=== PATIENT | male | born 1965 | race Caucasian/White ===

== ENCOUNTER 2018-04-29 09:50 | Observation (INO) | payer OTHER, SELFPAY ==
[~2018-04-29] VITALS: Ht 177.8 cm; Wt 90.7 kg
[~2018-04-29 09:50] MED LIST: AMLO5 PO; ASPI325 PO; ATEN100 PO; ATOR80 PO; Antivert25 MG PO; CLON.1 PO; CLOP75 PO; CYAN500 PO; Calcium 250+D1 EACH PO; EZET10 PO; FERR325 PO; FISH1000 PO; HYDACE5 PO; HYDROCHLOROTHIAZIDE 25 MG; Hydrochloroth12.5 MG PO; IBUP800 PO; INSULANPEN SQ; ISOMON60ER PO; LANTUS; LISHYD2025 PO; LISI20 PO; LOSA50 PO; MELATONIN 5 MG1 EACH PO; METF500 PO; METFORMIN 1000 MG; METO100ER PO; METO25ER PO; Norco 5-325 Ta1 EACH PO; RANI150 PO; RANO500T PO; SIMV40 PO; VENL37.5ER PO; Valium5 MG PO; XARELTO20 MG PO; Zofran Odt4 MG SL
[2018-04-29 10:05] LABS: Calcium, Ionized (POC) 1.18 mmol/L (1.10-1.46); Chloride (POC) 102 mmol/L (98-108); Creatinine (POC) 1.6 mg/dL (0.8-1.3); Glucose (ISTAT POC) 190 mg/dL (70-99); Hemoglobin (POC) 13.6 g/dL (13.5-17.5); Sodium (POC) 140 mmol/L (135-148); Total CO2 (POC) 23 mmol/L (21-32)
[2018-04-29 10:14] LABS: BASOPHILS ABSOLUTE AUTO 0.05 K/mm3 (0.00-0.23); BASOPHILS PERCENT AUTO 1 % (0-2); EOSINOPHILS ABSOLUTE AUTO 0.23 K/mm3 (0.00-0.68); EOSINOPHILS PERCENT AUTO 3 % (0-6); Hematocrit 41.8 % (37.0-53.0); IMMATURE GRAN ABSOLUTE AUTO 0.02 K/mm3 (0.00-0.10); IMMATURE GRAN PERCENT AUTO 0 % (0-1); LYMPHOCYTES ABSOLUTE AUTO 2.38 K/mm3 (0.84-5.20); LYMPHOCYTES PERCENT AUTO 31 % (21-46); MONOCYTES PERCENT AUTO 10 % (4-13); Mean Corpuscular HGB 29.3 pg (26.0-34.0); Mean Corpuscular HGB Conc 33.5 g/dL (31.5-36.5); Mean Corpuscular Volume 87 fL (80-100); Mean Platelet Volume 9.4 fL (9.1-12.4); NEUTROPHILS ABSOLUTE AUTO 4.24 K/mm3 (1.96-9.15); NEUTROPHILS PERCENT AUTO 55 % (41-73); Platelet Count 260 K/mm3 (150-400); RDW Coefficient Variation 13.2 % (11.7-14.2); RDW Standard Deviation 42.6 fL (35.1-46.3); Red Blood Cell Count 4.78 M/mm3 (4.30-5.90); White Blood Cell Count 7.72 K/mm3 (4.00-11.30)
[2018-04-29] MEDS ORDERED: Vitamin C100 MG (10:21)
[2018-04-29] MEDS ORDERED: Vitamin A8000 UNIT PO (10:21)
[2018-04-29 10:34] LABS: Albumin/Globulin Ratio 1.2 (0.8-1.8); Bilirubin, Total 0.4 mg/dL (0.1-1.0); Bun/Creatinine Ratio 11.9 (12.0-20.0); Calcium, Blood 9.4 mg/dL (8.5-10.1); Creatinine, Blood 1.43 mg/dL (0.60-1.20); Globulin, Blood 3.4 g/dL (2.2-4.0); Potassium, Blood 4.1 mmol/L (3.5-5.5); Total Protein, Blood 7.4 g/dL (6.4-8.2)
[2018-04-30] MEDS ORDERED: LEVE500 PO (11:40)
== END 2018-04-30 11:57 | disposition home or self-care (01) ==
LOC: ER 09:50 → MEDS 09:51
PROVIDERS: Emergency Medicine
DX: R56.9 Unspecified convulsions (principal); R55 Syncope and collapse; I35.0 Nonrheumatic aortic (valve) stenosis; I25.10 Atherosclerotic heart disease of native coronary artery without angina pectoris; E11.9 Type 2 diabetes mellitus without complications; I10 Essential (primary) hypertension; E78.5 Hyperlipidemia, unspecified; G47.33 Obstructive sleep apnea (adult) (pediatric); Z99.89 Dependence on other enabling machines and devices; Z79.899 Other long term (current) drug therapy; Z95.1 Presence of aortocoronary bypass graft
CPT/HCPCS: 36415; 70450; 70553; 71045; 80047; 80053; 82550; 82947; 83690; 85014; 85025; 93005; 93010; 94762; 95819; 96365; 96376; 99285-25; A9577; G0378; J1953

== ENCOUNTER 2018-09-22 17:55 | Emergency (ER) | payer OTHER ==
[~2018-09-22] VITALS: Ht 177.8 cm; Wt 104.3 kg
[~2018-09-22 17:55] MED LIST changes: +LEVE500 PO; +Vitamin A8000 UNIT PO; +Vitamin C100 MG
[2018-09-22] MEDS ORDERED: METF500C PO (18:48)
[2018-09-22] MEDS ORDERED: EZET10 PO (18:48)
[2018-09-22] MEDS ORDERED: GLIP5ER PO (18:49)
[2018-09-22] MEDS ORDERED: Keflex500 MG PO (20:08)
== END 2018-09-22 20:13 | disposition home or self-care (01) ==
LOC: ER 17:55
DX: S61.217A Laceration without foreign body of left little finger without damage to nail, initial encounter (principal); W31.2XXA Contact with powered woodworking and forming machines, initial encounter; Z91.048 Other nonmedicinal substance allergy status; Z79.84 Long term (current) use of oral hypoglycemic drugs; Z79.899 Other long term (current) drug therapy; I10 Essential (primary) hypertension; E11.9 Type 2 diabetes mellitus without complications; K21.9 Gastro-esophageal reflux disease without esophagitis
CPT/HCPCS: 12042; 73140; 99283-25

== ENCOUNTER 2018-12-28 23:10 | Emergency (ER) | payer OTHER ==
[~2018-12-28] VITALS: Ht 177.8 cm; Wt 102.5 kg
[~2018-12-28 23:10] MED LIST changes: +GLIP5ER PO; +Keflex500 MG PO; +METF500C PO
[2018-12-28 23:52] LABS: BASOPHILS ABSOLUTE AUTO 0.06 K/mm3 (0.00-0.23); BASOPHILS PERCENT AUTO 1 % (0-2); EOSINOPHILS ABSOLUTE AUTO 0.24 K/mm3 (0.00-0.68); EOSINOPHILS PERCENT AUTO 3 % (0-6); Hematocrit 44.9 % (37.0-53.0); Hemoglobin 14.9 g/dL (13.5-17.5); IMMATURE GRAN ABSOLUTE AUTO 0.01 K/mm3 (0.00-0.10); IMMATURE GRAN PERCENT AUTO 0 % (0-1); LYMPHOCYTES ABSOLUTE AUTO 2.18 K/mm3 (0.84-5.20); LYMPHOCYTES PERCENT AUTO 31 % (21-46); MONOCYTES ABSOLUTE AUTO 0.81 K/mm3 (0.16-1.47); MONOCYTES PERCENT AUTO 12 % (4-13); Mean Corpuscular HGB 29.5 pg (26.0-34.0); Mean Corpuscular HGB Conc 33.2 g/dL (31.5-36.5); Mean Corpuscular Volume 89 fL (80-100); Mean Platelet Volume 9.5 fL (9.1-12.4); NEUTROPHILS ABSOLUTE AUTO 3.77 K/mm3 (1.96-9.15); NEUTROPHILS PERCENT AUTO 53 % (41-73); Platelet Count 317 K/mm3 (150-400); Red Blood Cell Count 5.05 M/mm3 (4.30-5.90); White Blood Cell Count 7.07 K/mm3 (4.00-11.30)
[2018-12-29 00:07] LABS: Alanine Aminotransfer (ALT/SGP 26 U/L (12-78); Albumin, Blood 4.3 g/dL (3.4-5.0); Albumin/Globulin Ratio 1.1 (0.8-1.8); Alk Phos 64 U/L (50-136); Anion Gap 7 mmol/L (6-16); Aspartate Aminotrans (AST/SGOT 12 U/L (12-37); Bilirubin, Total 0.4 mg/dL (0.1-1.0); Blood Urea Nitrogen 14 mg/dL (8-24); Bun/Creatinine Ratio 13.9 (12.0-20.0); CO2, Blood 29 mmol/L (21-32); Chloride, Blood 102 mmol/L (98-108); Creatinine, Blood 1.01 mg/dL (0.60-1.20); Globulin, Blood 3.8 g/dL (2.2-4.0); Glomerular Filtration Rate >60 (60-); Glucose, Blood 171 mg/dL (70-99); Potassium, Blood 3.8 mmol/L (3.5-5.5); Sodium, Blood 138 mmol/L (136-145); Total Protein, Blood 8.1 g/dL (6.4-8.2); Troponin I <0.015 ng/mL (0.000-0.040)
== END 2018-12-29 02:46 | disposition home or self-care (01) ==
LOC: ER 23:10
PROVIDERS: Emergency Medicine
DX: I48.0 Paroxysmal atrial fibrillation (principal); I10 Essential (primary) hypertension; E11.9 Type 2 diabetes mellitus without complications; Z88.8 Allergy status to other drugs, medicaments and biological substances; Z79.899 Other long term (current) drug therapy; Z79.84 Long term (current) use of oral hypoglycemic drugs
CPT/HCPCS: 36415; 71046; 80053; 83880; 84484; 85025; 92960; 93005; 93010; 96374-59; 96375-59; 99285-25; J2704; J7030

== ENCOUNTER 2019-07-02 06:05 | Day surgery (SDC) | payer OTHER ==
[~2019-07-02] VITALS: Ht 177.8 cm; Wt 102.0 kg
[~2019-07-02 06:05] MED LIST changes: +AMLO10 PO; +NITR.4SL SL
[2019-07-02] MEDS ORDERED: Isosorbide Mono30 MG PO (08:58)
--- NOTE | 2019-07-02 09:24 | NUR ---
PT AMBULATES WITH DOWN HALLWAY WITH STEADY GAIT FOR ECHOCARDIOGRAM. RIGHT RADIAL SITE REMAINS STABLE. TR BAND ON SOFT NON TENDER WITH NO BLEEDING. ARM BOARD ON FOR SUPPORT.
--- NOTE | 2019-07-02 09:31 | NUR ---
Pt to echo room ambulatory.
--- NOTE | 2019-07-02 10:00 | NUR ---
Pt returned from echo voided return to recliner. Discharge instructions given. Pt and verbilzed understanding.
--- NOTE | 2019-07-02 10:57 | NUR ---
Correction total iv fluid 500 ns given.
--- NOTE | 2019-07-02 11:01 | NUR ---
3 cc air removed from tr-band.
--- NOTE | 2019-07-02 11:10 | NUR ---
All air removed from tr-band. Pt dressing.
--- NOTE | 2019-07-02 11:15 | NUR ---
IV DC'D, CATH INTACT. DEFLATED TR BAND REMOVED, CLOTH DOT DRESSING PLACED WITH SPLINT AND SLING. PT AND SPOUSE VERBALIZED UNDERSTANDING OF DC INSTRUCTIONS AND FOLLOW UP INFO. DENIED ANY QESTIONS. OUT TO CAR VIA W/C.
== END 2019-07-02 12:13 | disposition home or self-care (01) ==
LOC: MHTC 06:05
DX: T82.218A Other mechanical complication of coronary artery bypass graft, initial encounter (principal); I25.10 Atherosclerotic heart disease of native coronary artery without angina pectoris; I35.0 Nonrheumatic aortic (valve) stenosis; I48.0 Paroxysmal atrial fibrillation; I10 Essential (primary) hypertension; E78.5 Hyperlipidemia, unspecified; Z79.899 Other long term (current) drug therapy
CPT/HCPCS: 93005; 93010; 93306; 93455; 99152; 99153; C1769; C1894; J1644; J2250; J3010; J7030; Q9967

== ENCOUNTER 2020-10-13 00:42 | Emergency (ER) | payer OTHER ==
[~2020-10-13] VITALS: Ht 177.8 cm; Wt 104.3 kg
[~2020-10-13 00:42] MED LIST changes: +Isosorbide Mono30 MG PO
[2020-10-13 02:09] LABS: BASOPHILS ABSOLUTE AUTO 0.06 K/mm3 (0.00-0.23); BASOPHILS PERCENT AUTO 1 % (0-2); EOSINOPHILS ABSOLUTE AUTO 0.15 K/mm3 (0.00-0.68); EOSINOPHILS PERCENT AUTO 1 % (0-6); Hematocrit 42.1 % (37.0-53.0); IMMATURE GRAN ABSOLUTE AUTO 0.05 K/mm3 (0.00-0.10); IMMATURE GRAN PERCENT AUTO 1 % (0-1); LYMPHOCYTES ABSOLUTE AUTO 1.47 K/mm3 (0.84-5.20); LYMPHOCYTES PERCENT AUTO 14 % (21-46); MONOCYTES PERCENT AUTO 7 % (4-13); Mean Corpuscular HGB 28.7 pg (26.0-34.0); Mean Corpuscular HGB Conc 33.3 g/dL (31.5-36.5); Mean Corpuscular Volume 86 fL (80-100); Mean Platelet Volume 9.7 fL (9.1-12.4); NEUTROPHILS ABSOLUTE AUTO 8.23 K/mm3 (1.96-9.15); NEUTROPHILS PERCENT AUTO 76 % (41-73); Platelet Count 282 K/mm3 (150-400); RDW Coefficient Variation 12.9 % (11.7-14.2); RDW Standard Deviation 40.4 fL (35.1-46.3); Red Blood Cell Count 4.87 M/mm3 (4.30-5.90); White Blood Cell Count 10.76 K/mm3 (4.00-11.30)
[2020-10-13 02:27] LABS: Alanine Aminotransfer (ALT/SGP 22 U/L (12-78); Albumin, Blood 3.9 g/dL (3.4-5.0); Albumin/Globulin Ratio 1.2 (0.8-1.8); Alk Phos 57 U/L (50-136); Anion Gap 13 mmol/L (6-16); Aspartate Aminotrans (AST/SGOT 12 U/L (12-37); Bilirubin, Total 0.4 mg/dL (0.1-1.0); Blood Urea Nitrogen 15 mg/dL (8-24); Bun/Creatinine Ratio 12.7 (12.0-20.0); CO2, Blood 27 mmol/L (21-32); Calcium, Blood 9.1 mg/dL (8.5-10.1); Chloride, Blood 99 mmol/L (98-108); Creatinine, Blood 1.18 mg/dL (0.60-1.20); Globulin, Blood 3.3 g/dL (2.2-4.0); Glomerular Filtration Rate >60 (60-); Glucose, Blood 168 mg/dL (70-99); Potassium, Blood 3.5 mmol/L (3.5-5.5); Sodium, Blood 139 mmol/L (136-145); Total Protein, Blood 7.2 g/dL (6.4-8.2)
== END 2020-10-13 03:27 | disposition home or self-care (01) ==
LOC: ER 00:42
PROVIDERS: Emergency Medicine
DX: R51.9 Headache, unspecified (principal); I10 Essential (primary) hypertension; E11.9 Type 2 diabetes mellitus without complications; Z79.84 Long term (current) use of oral hypoglycemic drugs; Z91.09 Other allergy status, other than to drugs and biological substances; Z95.5 Presence of coronary angioplasty implant and graft; Z95.1 Presence of aortocoronary bypass graft; Z79.01 Long term (current) use of anticoagulants; Z79.899 Other long term (current) drug therapy
CPT/HCPCS: 36415; 70450; 80053; 85025; 96374; 96375; 99285-25; J1100; J1200; J2405; J2765

== ENCOUNTER 2020-10-16 09:05 | Emergency (ER) | payer OTHER ==
[~2020-10-16] VITALS: Ht 177.8 cm; Wt 104.3 kg
[2020-10-16] MEDS ORDERED: Hydrochloroth12.5 MG PO (10:15)
[2020-10-16] MEDS ORDERED: DOXYLAMINE SUCCINATE UD (10:16)
[2020-10-16] MEDS ORDERED: VITAMIN D31000 UNI1 PO (10:16)
[2020-10-16] MEDS ORDERED: MELATONIN10 MG PO (10:17)
[2020-10-16 10:18] LABS: BASOPHILS ABSOLUTE AUTO 0.04 K/mm3 (0.00-0.23); BASOPHILS PERCENT AUTO 0 % (0-2); EOSINOPHILS ABSOLUTE AUTO 0.07 K/mm3 (0.00-0.68); EOSINOPHILS PERCENT AUTO 1 % (0-6); Hematocrit 44.7 % (37.0-53.0); Hemoglobin 15.7 g/dL (13.5-17.5); IMMATURE GRAN ABSOLUTE AUTO 0.02 K/mm3 (0.00-0.10); IMMATURE GRAN PERCENT AUTO 0 % (0-1); LYMPHOCYTES ABSOLUTE AUTO 1.34 K/mm3 (0.84-5.20); LYMPHOCYTES PERCENT AUTO 15 % (21-46); MONOCYTES ABSOLUTE AUTO 0.65 K/mm3 (0.16-1.47); MONOCYTES PERCENT AUTO 7 % (4-13); Mean Corpuscular HGB 29.6 pg (26.0-34.0); Mean Corpuscular HGB Conc 35.1 g/dL (31.5-36.5); Mean Corpuscular Volume 84 fL (80-100); Mean Platelet Volume 10.2 fL (9.1-12.4); NEUTROPHILS ABSOLUTE AUTO 7.02 K/mm3 (1.96-9.15); NEUTROPHILS PERCENT AUTO 77 % (41-73); Platelet Count 322 K/mm3 (150-400); RDW Coefficient Variation 12.8 % (11.7-14.2); RDW Standard Deviation 38.7 fL (35.1-46.3); Red Blood Cell Count 5.31 M/mm3 (4.30-5.90); White Blood Cell Count 9.14 K/mm3 (4.00-11.30)
[2020-10-16] MEDS ORDERED: BASAGLAR K100 UNIT/1 SC (10:18)
[2020-10-16 10:37] LABS: Alanine Aminotransfer (ALT/SGP 26 U/L (12-78); Albumin, Blood 4.3 g/dL (3.4-5.0); Albumin/Globulin Ratio 1.1 (0.8-1.8); Alk Phos 64 U/L (50-136); Anion Gap 13 mmol/L (6-16); Aspartate Aminotrans (AST/SGOT 17 U/L (12-37); Bilirubin, Total 0.8 mg/dL (0.1-1.0); Blood Urea Nitrogen 11 mg/dL (8-24); Bun/Creatinine Ratio 9.9 (12.0-20.0); CO2, Blood 26 mmol/L (21-32); Chloride, Blood 98 mmol/L (98-108); Creatinine, Blood 1.11 mg/dL (0.60-1.20); Globulin, Blood 3.8 g/dL (2.2-4.0); Glomerular Filtration Rate >60 (60-); Glucose, Blood 259 mg/dL (70-99); Potassium, Blood 3.4 mmol/L (3.5-5.5); Sodium, Blood 137 mmol/L (136-145); Total Protein, Blood 8.1 g/dL (6.4-8.2)
[2020-10-16] MEDS ORDERED: ONDA4 PO (11:48)
== END 2020-10-16 12:39 | disposition home or self-care (01) ==
LOC: ER 09:05
PROVIDERS: Physician Assistant
DX: G43.909 Migraine, unspecified, not intractable, without status migrainosus (principal); Z79.4 Long term (current) use of insulin; Z79.899 Other long term (current) drug therapy; Z91.09 Other allergy status, other than to drugs and biological substances
CPT/HCPCS: 36415; 80053; 85025; 96361; 96374; 96375; 99284-25; J0780; J1200; J7030

== ENCOUNTER 2020-11-15 12:04 | Emergency (ER) | payer OTHER ==
[~2020-11-15] VITALS: Ht 177.8 cm; Wt 104.3 kg
[~2020-11-15 12:04] MED LIST changes: +BASAGLAR K100 UNIT/1 SC; +DOXYLAMINE SUCCINATE UD; +MELATONIN10 MG PO; +ONDA4 PO; +VITAMIN D31000 UNI1 PO
[2020-11-15 13:16] LABS: BASOPHILS ABSOLUTE AUTO 0.07 K/mm3 (0.00-0.23); BASOPHILS PERCENT AUTO 1 % (0-2); EOSINOPHILS ABSOLUTE AUTO 0.24 K/mm3 (0.00-0.68); EOSINOPHILS PERCENT AUTO 3 % (0-6); Hematocrit 43.1 % (37.0-53.0); Hemoglobin 14.4 g/dL (13.5-17.5); IMMATURE GRAN ABSOLUTE AUTO 0.03 K/mm3 (0.00-0.10); IMMATURE GRAN PERCENT AUTO 0 % (0-1); LYMPHOCYTES ABSOLUTE AUTO 1.58 K/mm3 (0.84-5.20); LYMPHOCYTES PERCENT AUTO 22 % (21-46); MONOCYTES ABSOLUTE AUTO 0.67 K/mm3 (0.16-1.47); MONOCYTES PERCENT AUTO 10 % (4-13); Mean Corpuscular HGB Conc 33.4 g/dL (31.5-36.5); Mean Corpuscular Volume 87 fL (80-100); Mean Platelet Volume 9.7 fL (9.1-12.4); NEUTROPHILS ABSOLUTE AUTO 4.48 K/mm3 (1.96-9.15); NEUTROPHILS PERCENT AUTO 63 % (41-73); Platelet Count 307 K/mm3 (150-400); RDW Coefficient Variation 13.6 % (11.7-14.2); RDW Standard Deviation 42.8 fL (35.1-46.3); Red Blood Cell Count 4.97 M/mm3 (4.30-5.90); White Blood Cell Count 7.07 K/mm3 (4.00-11.30)
[2020-11-15 13:20] LABS: Alanine Aminotransfer (ALT/SGP 28 U/L (12-78); Albumin, Blood 4.1 g/dL (3.4-5.0); Albumin/Globulin Ratio 1.2 (0.8-1.8); Alk Phos 51 U/L (50-136); Anion Gap 9 mmol/L (6-16); Aspartate Aminotrans (AST/SGOT 12 U/L (12-37); Bilirubin, Total 0.3 mg/dL (0.1-1.0); Blood Urea Nitrogen 13 mg/dL (8-24); Bun/Creatinine Ratio 10.7 (12.0-20.0); CO2, Blood 30 mmol/L (21-32); Chloride, Blood 100 mmol/L (98-108); Creatinine, Blood 1.21 mg/dL (0.60-1.20); Globulin, Blood 3.3 g/dL (2.2-4.0); Glomerular Filtration Rate >60 (60-); Glucose, Blood 135 mg/dL (70-99); Potassium, Blood 4.3 mmol/L (3.5-5.5); Sodium, Blood 139 mmol/L (136-145); Total Protein, Blood 7.4 g/dL (6.4-8.2); Troponin I <0.015 ng/mL (0.000-0.040)
[2020-11-15] MEDS ORDERED: CIPHYDOTSU (14:18)
== END 2020-11-15 14:50 | disposition home or self-care (01) ==
LOC: ER 12:04
PROVIDERS: Emergency Medicine
DX: R06.00 Dyspnea, unspecified (principal); R94.31 Abnormal electrocardiogram [ECG] [EKG]; I10 Essential (primary) hypertension; E11.9 Type 2 diabetes mellitus without complications; Z79.4 Long term (current) use of insulin; Z79.899 Other long term (current) drug therapy; Z91.09 Other allergy status, other than to drugs and biological substances; Z95.5 Presence of coronary angioplasty implant and graft
CPT/HCPCS: 71046; 80053; 83690; 83880; 84484; 85025; 93005; 93010; 99285-25

== ENCOUNTER 2021-01-23 13:58 | Emergency (ER) | payer OTHER ==
[~2021-01-23] VITALS: Ht 205.7 cm; Wt 107.3 kg
[~2021-01-23 13:58] MED LIST changes: +CIPHYDOTSU
[2021-01-23 14:31] LABS: BASOPHILS ABSOLUTE AUTO 0.05 K/mm3 (0.00-0.23); BASOPHILS PERCENT AUTO 1 % (0-2); EOSINOPHILS ABSOLUTE AUTO 0.13 K/mm3 (0.00-0.68); EOSINOPHILS PERCENT AUTO 2 % (0-6); Hematocrit 41.3 % (37.0-53.0); Hemoglobin 14.2 g/dL (13.5-17.5); IMMATURE GRAN ABSOLUTE AUTO 0.02 K/mm3 (0.00-0.10); IMMATURE GRAN PERCENT AUTO 0 % (0-1); LYMPHOCYTES ABSOLUTE AUTO 1.17 K/mm3 (0.84-5.20); LYMPHOCYTES PERCENT AUTO 17 % (21-46); MONOCYTES ABSOLUTE AUTO 0.62 K/mm3 (0.16-1.47); MONOCYTES PERCENT AUTO 9 % (4-13); Mean Corpuscular HGB 29.5 pg (26.0-34.0); Mean Corpuscular HGB Conc 34.4 g/dL (31.5-36.5); Mean Corpuscular Volume 86 fL (80-100); Mean Platelet Volume 9.5 fL (9.1-12.4); NEUTROPHILS ABSOLUTE AUTO 4.98 K/mm3 (1.96-9.15); NEUTROPHILS PERCENT AUTO 71 % (41-73); Platelet Count 273 K/mm3 (150-400); RDW Coefficient Variation 13.3 % (11.7-14.2); Red Blood Cell Count 4.82 M/mm3 (4.30-5.90); White Blood Cell Count 6.97 K/mm3 (4.00-11.30)
[2021-01-23 14:45] LABS: Alanine Aminotransfer (ALT/SGP 21 U/L (12-78); Albumin/Globulin Ratio 1.1 (0.8-1.8); Alk Phos 52 U/L (50-136); Anion Gap 7 mmol/L (6-16); Aspartate Aminotrans (AST/SGOT 13 U/L (12-37); Bilirubin, Total 0.5 mg/dL (0.1-1.0); Blood Urea Nitrogen 14 mg/dL (8-24); Bun/Creatinine Ratio 12.3 (12.0-20.0); CO2, Blood 28 mmol/L (21-32); Calcium, Blood 9.9 mg/dL (8.5-10.1); Chloride, Blood 103 mmol/L (98-108); Creatinine, Blood 1.14 mg/dL (0.60-1.20); Globulin, Blood 3.5 g/dL (2.2-4.0); Glomerular Filtration Rate >60 (60-); Glucose, Blood 103 mg/dL (70-99); Sodium, Blood 138 mmol/L (136-145); Total Protein, Blood 7.5 g/dL (6.4-8.2)
== END 2021-01-23 15:50 | disposition home or self-care (01) ==
LOC: ER 13:58
PROVIDERS: Emergency Medicine
DX: G43.809 Other migraine, not intractable, without status migrainosus (principal); I10 Essential (primary) hypertension; E11.9 Type 2 diabetes mellitus without complications; E78.5 Hyperlipidemia, unspecified; I25.810 Atherosclerosis of coronary artery bypass graft(s) without angina pectoris; Z95.1 Presence of aortocoronary bypass graft; Z95.5 Presence of coronary angioplasty implant and graft; Z91.09 Other allergy status, other than to drugs and biological substances; Z79.899 Other long term (current) drug therapy; Z79.4 Long term (current) use of insulin
CPT/HCPCS: 70450; 80053; 85025; 93005; 93010; 99285-25

== ENCOUNTER 2021-01-30 15:56 | Emergency (ER) | payer OTHER ==
[~2021-01-30] VITALS: Ht 177.8 cm; Wt 108.9 kg
[2021-01-30 16:48] LABS: BASOPHILS ABSOLUTE AUTO 0.06 K/mm3 (0.00-0.23); BASOPHILS PERCENT AUTO 1 % (0-2); EOSINOPHILS ABSOLUTE AUTO 0.15 K/mm3 (0.00-0.68); EOSINOPHILS PERCENT AUTO 2 % (0-6); Hemoglobin 14.6 g/dL (13.5-17.5); IMMATURE GRAN ABSOLUTE AUTO 0.01 K/mm3 (0.00-0.10); IMMATURE GRAN PERCENT AUTO 0 % (0-1); LYMPHOCYTES ABSOLUTE AUTO 1.57 K/mm3 (0.84-5.20); LYMPHOCYTES PERCENT AUTO 23 % (21-46); MONOCYTES PERCENT AUTO 9 % (4-13); Mean Corpuscular HGB 29.3 pg (26.0-34.0); Mean Corpuscular Volume 86 fL (80-100); Mean Platelet Volume 9.6 fL (9.1-12.4); NEUTROPHILS ABSOLUTE AUTO 4.36 K/mm3 (1.96-9.15); NEUTROPHILS PERCENT AUTO 65 % (41-73); Platelet Count 290 K/mm3 (150-400); RDW Standard Deviation 40.6 fL (35.1-46.3); Red Blood Cell Count 4.99 M/mm3 (4.30-5.90); White Blood Cell Count 6.75 K/mm3 (4.00-11.30)
[2021-01-30 17:18] LABS: Alanine Aminotransfer (ALT/SGP 21 U/L (12-78); Albumin, Blood 3.9 g/dL (3.4-5.0); Albumin/Globulin Ratio 1.1 (0.8-1.8); Alk Phos 57 U/L (50-136); Anion Gap 4 mmol/L (6-16); Aspartate Aminotrans (AST/SGOT 13 U/L (12-37); Bilirubin, Total 0.4 mg/dL (0.1-1.0); Blood Urea Nitrogen 16 mg/dL (8-24); Bun/Creatinine Ratio 12.6 (12.0-20.0); CO2, Blood 33 mmol/L (21-32); Calcium, Blood 9.2 mg/dL (8.5-10.1); Chloride, Blood 98 mmol/L (98-108); Creatinine, Blood 1.27 mg/dL (0.60-1.20); Globulin, Blood 3.6 g/dL (2.2-4.0); Glomerular Filtration Rate >60 (60-); Glucose, Blood 203 mg/dL (70-99); Potassium, Blood 4.3 mmol/L (3.5-5.5); Sodium, Blood 135 mmol/L (136-145); Total Protein, Blood 7.5 g/dL (6.4-8.2)
== END 2021-01-30 19:14 | disposition home or self-care (01) ==
LOC: ER 15:56
PROVIDERS: Physician Assistant
DX: R41.82 Altered mental status, unspecified (principal); I10 Essential (primary) hypertension; E11.9 Type 2 diabetes mellitus without complications; E78.5 Hyperlipidemia, unspecified; I25.810 Atherosclerosis of coronary artery bypass graft(s) without angina pectoris; Z95.5 Presence of coronary angioplasty implant and graft; Z95.1 Presence of aortocoronary bypass graft
CPT/HCPCS: 36415; 80053; 85025; 99284

== ENCOUNTER 2021-09-25 14:41 | Emergency (ER) | payer OTHER ==
[~2021-09-25] VITALS: Ht 177.8 cm; Wt 100.7 kg
[2021-09-25 15:11] LABS: BASOPHILS ABSOLUTE AUTO 0.06 K/mm3 (0.00-0.23); BASOPHILS PERCENT AUTO 1 % (0-2); EOSINOPHILS ABSOLUTE AUTO 0.15 K/mm3 (0.00-0.68); EOSINOPHILS PERCENT AUTO 2 % (0-6); Hemoglobin 15.8 g/dL (13.5-17.5); IMMATURE GRAN ABSOLUTE AUTO 0.03 K/mm3 (0.00-0.10); IMMATURE GRAN PERCENT AUTO 0 % (0-1); LYMPHOCYTES ABSOLUTE AUTO 2.17 K/mm3 (0.84-5.20); LYMPHOCYTES PERCENT AUTO 28 % (21-46); MONOCYTES ABSOLUTE AUTO 0.93 K/mm3 (0.16-1.47); MONOCYTES PERCENT AUTO 12 % (4-13); Mean Corpuscular HGB 28.8 pg (26.0-34.0); Mean Corpuscular HGB Conc 34.3 g/dL (31.5-36.5); Mean Corpuscular Volume 84 fL (80-100); Mean Platelet Volume 9.5 fL (9.1-12.4); NEUTROPHILS ABSOLUTE AUTO 4.48 K/mm3 (1.96-9.15); NEUTROPHILS PERCENT AUTO 57 % (41-73); Platelet Count 283 K/mm3 (150-400); RDW Coefficient Variation 13.2 % (11.7-14.2); Red Blood Cell Count 5.48 M/mm3 (4.30-5.90); White Blood Cell Count 7.82 K/mm3 (4.00-11.30)
[2021-09-25 15:31] LABS: Alanine Aminotransfer (ALT/SGP 20 U/L (12-78); Albumin, Blood 3.9 g/dL (3.4-5.0); Albumin/Globulin Ratio 1.1 (0.8-1.8); Alk Phos 57 U/L (50-136); Anion Gap 13 mmol/L (6-16); Aspartate Aminotrans (AST/SGOT 17 U/L (12-37); Bilirubin, Total 0.6 mg/dL (0.1-1.0); Blood Urea Nitrogen 18 mg/dL (8-24); Bun/Creatinine Ratio 9.6 (12.0-20.0); CO2, Blood 28 mmol/L (21-32); Calcium, Blood 9.6 mg/dL (8.5-10.1); Chloride, Blood 94 mmol/L (98-108); Creatinine, Blood 1.87 mg/dL (0.60-1.20); Globulin, Blood 3.5 g/dL (2.2-4.0); Glomerular Filtration Rate 37 (60-); Glucose, Blood 111 mg/dL (70-99); Potassium, Blood 3.9 mmol/L (3.5-5.5); Sodium, Blood 135 mmol/L (136-145); Total Protein, Blood 7.4 g/dL (6.4-8.2); Troponin I <0.015 ng/mL (0.000-0.040)
[2021-09-25 15:59] LABS: Base Excess Venous 3.2 mmol/L; Bicarbonate Venous 25.9 mmol/L (24.0-30.0); PCO2 Venous 45.9 mmHg (38-42); PO2 Venous 41.6 mmHg (38-42)
== END 2021-09-25 16:49 | disposition home or self-care (01) ==
LOC: ER 14:41
PROVIDERS: Emergency Medicine
DX: R55 Syncope and collapse (principal); N17.9 Acute kidney failure, unspecified; J44.9 Chronic obstructive pulmonary disease, unspecified; Z79.4 Long term (current) use of insulin; Z79.84 Long term (current) use of oral hypoglycemic drugs; Z79.899 Other long term (current) drug therapy; I10 Essential (primary) hypertension; E11.9 Type 2 diabetes mellitus without complications; I25.10 Atherosclerotic heart disease of native coronary artery without angina pectoris; E78.5 Hyperlipidemia, unspecified
CPT/HCPCS: 70450; 71045; 72125; 80053; 82803; 83880; 84443; 84484; 85025; 93005; 93010; 96374; 99285-25; J2405; J7120

== ENCOUNTER 2021-12-12 15:24 | Emergency (ER) | payer OTHER ==
[~2021-12-12] VITALS: Ht 177.8 cm; Wt 97.5 kg
[~2021-12-12 15:24] MED LIST changes: +Carvedilol12.5 MG PO; +ELIQUIS5 M2 PO; +FAMO20 PO; +JARDIANCE10 MG PO; +JARDIANCE25 MG PO; +METO50ER PO; +PANT40 PO; +VENL75ER PO; +VITAMIN A PO; +Vitamin D1000 UNI1 PO; +WEGOVY0.5 MG/0.5 SC; +XARELTO10 M2 PO; -XARELTO20 MG PO
[2021-12-12 16:21] LABS: BASOPHILS ABSOLUTE AUTO 0.05 K/mm3 (0.00-0.23); BASOPHILS PERCENT AUTO 1 % (0-2); EOSINOPHILS ABSOLUTE AUTO 0.39 K/mm3 (0.00-0.68); EOSINOPHILS PERCENT AUTO 7 % (0-6); Hematocrit 40.2 % (37.0-53.0); Hemoglobin 13.3 g/dL (13.5-17.5); IMMATURE GRAN ABSOLUTE AUTO 0.02 K/mm3 (0.00-0.10); IMMATURE GRAN PERCENT AUTO 0 % (0-1); LYMPHOCYTES ABSOLUTE AUTO 1.27 K/mm3 (0.84-5.20); LYMPHOCYTES PERCENT AUTO 21 % (21-46); MONOCYTES PERCENT AUTO 8 % (4-13); Mean Corpuscular HGB 28.4 pg (26.0-34.0); Mean Corpuscular HGB Conc 33.1 g/dL (31.5-36.5); Mean Corpuscular Volume 86 fL (80-100); Mean Platelet Volume 9.8 fL (9.1-12.4); NEUTROPHILS ABSOLUTE AUTO 3.81 K/mm3 (1.96-9.15); NEUTROPHILS PERCENT AUTO 63 % (41-73); Platelet Count 332 K/mm3 (150-400); RDW Coefficient Variation 13.8 % (11.7-14.2); RDW Standard Deviation 42.8 fL (35.1-46.3); Red Blood Cell Count 4.68 M/mm3 (4.30-5.90); White Blood Cell Count 6.04 K/mm3 (4.00-11.30)
[2021-12-12 16:46] LABS: Alanine Aminotransfer (ALT/SGP 23 U/L (12-78); Albumin, Blood 4.3 g/dL (3.4-5.0); Albumin/Globulin Ratio 1.2 (0.8-1.8); Alk Phos 63 U/L (50-136); Anion Gap 8 mmol/L (6-16); Aspartate Aminotrans (AST/SGOT 17 U/L (12-37); Bilirubin, Total 0.5 mg/dL (0.1-1.0); Blood Urea Nitrogen 14 mg/dL (8-24); Bun/Creatinine Ratio 11.5 (12.0-20.0); CO2, Blood 24 mmol/L (21-32); Calcium, Blood 9.5 mg/dL (8.5-10.1); Chloride, Blood 104 mmol/L (98-108); Creatinine, Blood 1.22 mg/dL (0.60-1.20); Globulin, Blood 3.7 g/dL (2.2-4.0); Glomerular Filtration Rate >60 (60-); Glucose, Blood 162 mg/dL (70-99); Magnesium, Blood 1.9 mg/dL (1.6-2.4); Potassium, Blood 4.4 mmol/L (3.5-5.5); Sodium, Blood 136 mmol/L (136-145)
[2021-12-12 18:18] LABS: Source, Urine Clean Catch
[2021-12-12 18:21] LABS: Appearance, Urine Clear (Clear); Bilirubin, Urine Neg (Neg); Blood, Urine Neg (Neg); Color, Urine Yellow (P-Yellow); Glucose Qualitative, Urine 4+ (Neg); Ketones, Urine Neg (Neg); Leukocyte Esterase, Urine Neg (Neg); Nitrite, Urine Neg (Neg); Protein, Urine Neg (Neg); Urobilinogen, Urine NORM (Normal)
== END 2021-12-12 21:55 | disposition home or self-care (01) ==
LOC: ER 15:24
PROVIDERS: Physician Assistant
DX: R40.4 Transient alteration of awareness (principal); R53.83 Other fatigue; R11.0 Nausea; I10 Essential (primary) hypertension; E78.5 Hyperlipidemia, unspecified; Z79.899 Other long term (current) drug therapy
CPT/HCPCS: 36415; 70450; 71045; 80053; 81003; 82947; 83735; 84484; 85025; 86850; 86900; 86901; 93005; 93010; 96374; 96375; 99285-25; J1200; J2765; J7030

== ENCOUNTER 2022-02-06 08:01 | Observation (INO) | payer OTHER ==
[~2022-02-06] VITALS: Ht 177.8 cm; Wt 99.8 kg
[2022-02-06 08:58] LABS: BASOPHILS ABSOLUTE AUTO 0.05 K/mm3 (0.00-0.23); BASOPHILS PERCENT AUTO 1 % (0-2); EOSINOPHILS ABSOLUTE AUTO 0.45 K/mm3 (0.00-0.68); EOSINOPHILS PERCENT AUTO 5 % (0-6); Hemoglobin 12.7 g/dL (13.5-17.5); IMMATURE GRAN ABSOLUTE AUTO 0.02 K/mm3 (0.00-0.10); IMMATURE GRAN PERCENT AUTO 0 % (0-1); LYMPHOCYTES ABSOLUTE AUTO 1.47 K/mm3 (0.84-5.20); LYMPHOCYTES PERCENT AUTO 16 % (21-46); MONOCYTES ABSOLUTE AUTO 0.75 K/mm3 (0.16-1.47); MONOCYTES PERCENT AUTO 8 % (4-13); Mean Corpuscular HGB 26.8 pg (26.0-34.0); Mean Corpuscular HGB Conc 31.8 g/dL (31.5-36.5); Mean Corpuscular Volume 84 fL (80-100); Mean Platelet Volume 9.8 fL (9.1-12.4); NEUTROPHILS ABSOLUTE AUTO 6.77 K/mm3 (1.96-9.15); NEUTROPHILS PERCENT AUTO 71 % (41-73); Platelet Count 280 K/mm3 (150-400); RDW Coefficient Variation 13.8 % (11.7-14.2); RDW Standard Deviation 42.4 fL (35.1-46.3); Red Blood Cell Count 4.74 M/mm3 (4.30-5.90); White Blood Cell Count 9.51 K/mm3 (4.00-11.30)
[2022-02-06 09:02] LABS: Albumin/Globulin Ratio 1.1 (0.8-1.8); Bilirubin, Total 0.4 mg/dL (0.1-1.0); Bun/Creatinine Ratio 15.7 (12.0-20.0); Calcium, Blood 9.5 mg/dL (8.5-10.1); Creatinine, Blood 1.21 mg/dL (0.60-1.20); Globulin, Blood 3.7 g/dL (2.2-4.0); Potassium, Blood 4.3 mmol/L (3.5-5.5); Total Protein, Blood 7.7 g/dL (6.4-8.2)
[2022-02-06 09:25] LABS: International Normalized Ratio 1.08; Prothrombin Time Results 11.3 Sec (9.7-11.5)
[2022-02-06 15:47] LABS: Source, Urine Clean Catch
[2022-02-06 15:59] LABS: Appearance, Urine Clear (Clear); Bilirubin, Urine Neg (Neg); Blood, Urine Neg (Neg); Color, Urine Yellow (P-Yellow); Glucose Qualitative, Urine 4+ (Neg); Ketones, Urine 2+ (Neg); Leukocyte Esterase, Urine Neg (Neg); Nitrite, Urine Neg (Neg); Protein, Urine Neg (Neg); Specific Gravity, Urine 1.015 (1.003-1.022); Urobilinogen, Urine NORM (Normal)
[2022-02-07 04:11] LABS: Hematocrit 36.7 % (37.0-53.0); Hemoglobin 11.9 g/dL (13.5-17.5); Mean Corpuscular HGB 27.1 pg (26.0-34.0); Mean Corpuscular HGB Conc 32.4 g/dL (31.5-36.5); Mean Corpuscular Volume 84 fL (80-100); Mean Platelet Volume 9.7 fL (9.1-12.4); Platelet Count 290 K/mm3 (150-400); RDW Coefficient Variation 14.1 % (11.7-14.2); RDW Standard Deviation 42.8 fL (35.1-46.3); Red Blood Cell Count 4.39 M/mm3 (4.30-5.90); White Blood Cell Count 8.33 K/mm3 (4.00-11.30)
[2022-02-07 04:29] LABS: Bun/Creatinine Ratio 17.3 (12.0-20.0); Calcium, Blood 8.8 mg/dL (8.5-10.1); Creatinine, Blood 0.92 mg/dL (0.60-1.20); Magnesium, Blood 2.5 mg/dL (1.6-2.4); Potassium, Blood 3.8 mmol/L (3.5-5.5)
[2022-02-08] MEDS ORDERED: AMLO5 PO (12:01)
[2022-02-08] MEDS ORDERED: ASPI81CH PO (12:02)
== END 2022-02-08 12:35 | disposition home or self-care (01) ==
LOC: ER 08:01 → MEDS 08:02 → ER 12:19 → EDBEDREQ 12:37 → MEDS 14:13
PROVIDERS: Nurse Practitioner Acute Care; Physician Assistant; ADMIT Internal Medicine
DX: I63.9 Cerebral infarction, unspecified (principal); I10 Essential (primary) hypertension; E78.5 Hyperlipidemia, unspecified; E11.9 Type 2 diabetes mellitus without complications; I48.91 Unspecified atrial fibrillation; I25.10 Atherosclerotic heart disease of native coronary artery without angina pectoris; K21.9 Gastro-esophageal reflux disease without esophagitis; G47.33 Obstructive sleep apnea (adult) (pediatric); G40.909 Epilepsy, unspecified, not intractable, without status epilepticus; Z86.73 Personal history of transient ischemic attack (TIA), and cerebral infarction without residual deficits; Z95.1 Presence of aortocoronary bypass graft; Z88.8 Allergy status to other drugs, medicaments and biological substances; Z79.4 Long term (current) use of insulin; Z79.01 Long term (current) use of anticoagulants; Z79.899 Other long term (current) drug therapy
CPT/HCPCS: 36415; 70450; 80048; 80053; 81003; 82947; 83735; 85025; 85027; 85610; 92610; 93005; 93010; 93306; 93880; 94760; 94762; 96361; 96374; 96375; 97110; 97112; 97116; 97161; 97165; 99285-25; A9270; G0378; J0780; J1200; J1815; J2405; J7030

== ENCOUNTER 2022-04-21 14:10 | Emergency (ER) | payer OTHER ==
[~2022-04-21] VITALS: Ht 177.8 cm; Wt 94.3 kg
[~2022-04-21 14:10] MED LIST changes: +ASPI81CH PO
[2022-04-21 15:08] LABS: BASOPHILS ABSOLUTE AUTO 0.05 K/mm3 (0.00-0.23); BASOPHILS PERCENT AUTO 1 % (0-2); EOSINOPHILS ABSOLUTE AUTO 0.17 K/mm3 (0.00-0.68); EOSINOPHILS PERCENT AUTO 3 % (0-6); Hematocrit 40.7 % (37.0-53.0); Hemoglobin 12.9 g/dL (13.5-17.5); IMMATURE GRAN ABSOLUTE AUTO 0.01 K/mm3 (0.00-0.10); IMMATURE GRAN PERCENT AUTO 0 % (0-1); LYMPHOCYTES ABSOLUTE AUTO 1.16 K/mm3 (0.84-5.20); LYMPHOCYTES PERCENT AUTO 20 % (21-46); MONOCYTES ABSOLUTE AUTO 0.57 K/mm3 (0.16-1.47); MONOCYTES PERCENT AUTO 10 % (4-13); Mean Corpuscular HGB Conc 31.7 g/dL (31.5-36.5); Mean Corpuscular Volume 82 fL (80-100); Mean Platelet Volume 9.7 fL (9.1-12.4); NEUTROPHILS ABSOLUTE AUTO 3.81 K/mm3 (1.96-9.15); NEUTROPHILS PERCENT AUTO 66 % (41-73); Platelet Count 376 K/mm3 (150-400); RDW Coefficient Variation 15.8 % (11.7-14.2); Red Blood Cell Count 4.97 M/mm3 (4.30-5.90); White Blood Cell Count 5.77 K/mm3 (4.00-11.30)
[2022-04-21 15:22] LABS: Albumin, Blood 4.1 g/dL (3.4-5.0); Bilirubin, Total 0.7 mg/dL (0.1-1.0); Calcium, Blood 9.3 mg/dL (8.5-10.1); Creatinine, Blood 1.25 mg/dL (0.60-1.20); Globulin, Blood 4.1 g/dL (2.2-4.0); Potassium, Blood 4.5 mmol/L (3.5-5.5); Total Protein, Blood 8.2 g/dL (6.4-8.2)
== END 2022-04-21 16:30 | disposition home or self-care (01) ==
LOC: ER 14:10
PROVIDERS: Physician Assistant
DX: R47.01 Aphasia (principal); I10 Essential (primary) hypertension; E11.9 Type 2 diabetes mellitus without complications; E78.5 Hyperlipidemia, unspecified; I25.10 Atherosclerotic heart disease of native coronary artery without angina pectoris; Z79.82 Long term (current) use of aspirin; Z79.4 Long term (current) use of insulin; Z79.01 Long term (current) use of anticoagulants; Z79.899 Other long term (current) drug therapy; Z88.8 Allergy status to other drugs, medicaments and biological substances; Z91.09 Other allergy status, other than to drugs and biological substances; Z95.5 Presence of coronary angioplasty implant and graft
CPT/HCPCS: 36415; 70450; 80053; 82947; 85025; 93005; 93010

== ENCOUNTER 2022-06-22 10:50 | Emergency (ER) | payer OTHER ==
[~2022-06-22] VITALS: Ht 177.8 cm; Wt 93.0 kg
[2022-06-22 11:51] LABS: BASOPHILS ABSOLUTE AUTO 0.06 K/mm3 (0.00-0.23); BASOPHILS PERCENT AUTO 1 % (0-2); EOSINOPHILS ABSOLUTE AUTO 0.41 K/mm3 (0.00-0.68); EOSINOPHILS PERCENT AUTO 8 % (0-6); Hematocrit 36.2 % (37.0-53.0); Hemoglobin 12.1 g/dL (13.5-17.5); IMMATURE GRAN ABSOLUTE AUTO 0.01 K/mm3 (0.00-0.10); IMMATURE GRAN PERCENT AUTO 0 % (0-1); LYMPHOCYTES ABSOLUTE AUTO 1.11 K/mm3 (0.84-5.20); LYMPHOCYTES PERCENT AUTO 21 % (21-46); MONOCYTES ABSOLUTE AUTO 0.63 K/mm3 (0.16-1.47); MONOCYTES PERCENT AUTO 12 % (4-13); Mean Corpuscular HGB 27.5 pg (26.0-34.0); Mean Corpuscular HGB Conc 33.4 g/dL (31.5-36.5); Mean Corpuscular Volume 82 fL (80-100); Mean Platelet Volume 9.5 fL (9.1-12.4); NEUTROPHILS ABSOLUTE AUTO 3.11 K/mm3 (1.96-9.15); NEUTROPHILS PERCENT AUTO 58 % (41-73); Platelet Count 288 K/mm3 (150-400); RDW Standard Deviation 48.7 fL (35.1-46.3); White Blood Cell Count 5.33 K/mm3 (4.00-11.30)
[2022-06-22 12:13] LABS: Albumin/Globulin Ratio 1.2 (0.8-1.8); Bilirubin, Total 0.5 mg/dL (0.1-1.0); Bun/Creatinine Ratio 14.7 (12.0-20.0); Creatinine, Blood 1.02 mg/dL (0.60-1.20); Globulin, Blood 3.4 g/dL (2.2-4.0); Potassium, Blood 4.1 mmol/L (3.5-5.5); Total Protein, Blood 7.4 g/dL (6.4-8.2)
== END 2022-06-22 12:51 | disposition home or self-care (01) ==
LOC: ER 10:50
PROVIDERS: Emergency Medicine
DX: R26.2 Difficulty in walking, not elsewhere classified (principal); Z88.8 Allergy status to other drugs, medicaments and biological substances; Z91.048 Other nonmedicinal substance allergy status; Z79.899 Other long term (current) drug therapy; Z79.4 Long term (current) use of insulin; Z79.84 Long term (current) use of oral hypoglycemic drugs; Z79.82 Long term (current) use of aspirin; I10 Essential (primary) hypertension; E11.9 Type 2 diabetes mellitus without complications; E78.5 Hyperlipidemia, unspecified; I25.10 Atherosclerotic heart disease of native coronary artery without angina pectoris; G47.30 Sleep apnea, unspecified
CPT/HCPCS: 36415; 70450; 80053; 85025; 93005; 93010; 99284-25

== ENCOUNTER 2022-08-10 07:17 | Day surgery (SDC) | payer OTHER ==
[~2022-08-10] VITALS: Ht 177.8 cm; Wt 97.0 kg
--- NOTE | 2022-08-10 14:01 | NUR ---
patient awake and responds appropriately. roght groin site soft and nontender dressind D&I. no hematoma no bleeding. HOB up 40-50 degrees.
--- NOTE | 2022-08-10 14:30 | NUR ---
PATIENT AMBULATING IN RECOVERY ROOM. TOLERATED WELL. RIGHT GROIN SITE UNCHANGED.
--- NOTE | 2022-08-10 15:05 | NUR ---
PATIENT AND VERBALIZED UNDERSTANDING OF DISCHARGE INSTRUCTIONS AND PRECAUTIONS. NO FURTHER QUESTIONS. PATIENT UP IN ROOM AND DRESSED. RIGHT GROIN SITE REMAIND SOFT AND NONTENDER. NO HEMATOMA. NO BLEEDING.IV SITE DCED BY PRIYANKA CARVAJAL. CATHETER INTACT. PATIENT DISCHARGED VIA WHEELCHAIR BY PRIYANKA CARVAJAL. DRIVING .
== END 2022-08-10 15:43 | disposition home or self-care (01) ==
LOC: MHTC 07:17
DX: I35.0 Nonrheumatic aortic (valve) stenosis (principal); I25.10 Atherosclerotic heart disease of native coronary artery without angina pectoris; R09.89 Other specified symptoms and signs involving the circulatory and respiratory systems; R94.31 Abnormal electrocardiogram [ECG] [EKG]; I48.0 Paroxysmal atrial fibrillation; I10 Essential (primary) hypertension; E11.9 Type 2 diabetes mellitus without complications; E78.5 Hyperlipidemia, unspecified; G40.909 Epilepsy, unspecified, not intractable, without status epilepticus; K25.9 Gastric ulcer, unspecified as acute or chronic, without hemorrhage or perforation; E66.9 Obesity, unspecified; Z86.16 Personal history of COVID-19; Z87.891 Personal history of nicotine dependence; Z68.31 Body mass index [BMI] 31.0-31.9, adult
CPT/HCPCS: 76937; 93455; 99152; 99153; C1769; C1894; J1644; J2250; J3010; J7030; J7040; Q9967

== ENCOUNTER 2023-02-17 06:16 | Emergency (ER) | payer OTHER ==
[~2023-02-17] VITALS: Ht 177.8 cm; Wt 95.2 kg
[2023-02-17 06:51] LABS: BASOPHILS ABSOLUTE AUTO 0.06 K/mm3 (0.00-0.23); BASOPHILS PERCENT AUTO 1 % (0-2); EOSINOPHILS ABSOLUTE AUTO 0.16 K/mm3 (0.00-0.68); EOSINOPHILS PERCENT AUTO 3 % (0-6); Hematocrit 34.7 % (37.0-53.0); Hemoglobin 11.3 g/dL (13.5-17.5); IMMATURE GRAN ABSOLUTE AUTO 0.01 K/mm3 (0.00-0.10); IMMATURE GRAN PERCENT AUTO 0 % (0-1); LYMPHOCYTES ABSOLUTE AUTO 1.88 K/mm3 (0.84-5.20); LYMPHOCYTES PERCENT AUTO 37 % (21-46); MONOCYTES ABSOLUTE AUTO 0.56 K/mm3 (0.16-1.47); MONOCYTES PERCENT AUTO 11 % (4-13); Mean Corpuscular HGB 25.9 pg (26.0-34.0); Mean Corpuscular HGB Conc 32.6 g/dL (31.5-36.5); Mean Corpuscular Volume 79 fL (80-100); Mean Platelet Volume 9.4 fL (9.1-12.4); NEUTROPHILS ABSOLUTE AUTO 2.44 K/mm3 (1.96-9.15); NEUTROPHILS PERCENT AUTO 48 % (41-73); Platelet Count 306 K/mm3 (150-400); RDW Coefficient Variation 15.4 % (11.7-14.2); RDW Standard Deviation 44.1 fL (35.1-46.3); Red Blood Cell Count 4.37 M/mm3 (4.30-5.90); White Blood Cell Count 5.11 K/mm3 (4.00-11.30)
[2023-02-17 06:59] LABS: Albumin, Blood 3.7 g/dL (3.4-5.0); Bilirubin, Total 0.3 mg/dL (0.1-1.0); Bun/Creatinine Ratio 15.1 (12.0-20.0); Calcium, Blood 9.3 mg/dL (8.5-10.1); Creatinine, Blood 1.26 mg/dL (0.60-1.20); Globulin, Blood 3.6 g/dL (2.2-4.0); Potassium, Blood 3.7 mmol/L (3.5-5.5); Total Protein, Blood 7.3 g/dL (6.4-8.2)
[2023-02-17 08:15] VITALS: BP 165/75
[2023-02-17 08:44] LABS: Source, Urine Clean Catch
[2023-02-17 09:01] LABS: Bilirubin, Urine Neg (Neg); Blood, Urine Neg (Neg); Glucose Qualitative, Urine 4+ (Neg); Ketones, Urine Neg (Neg); Leukocyte Esterase, Urine Neg (Neg); Nitrite, Urine Neg (Neg); Protein, Urine Neg (Neg); Urobilinogen, Urine NORM (Normal); pH, Urine 6.5 (5.0-8.0)
[2023-02-17 09:08] LABS: Appearance, Urine Clear (Clear); Color, Urine Yellow (P-Yellow)
== END 2023-02-17 10:03 | disposition home or self-care (01) ==
LOC: ER 06:16
PROVIDERS: Student in an Organized Health Care Education/Training Program
DX: G40.909 Epilepsy, unspecified, not intractable, without status epilepticus (principal); R53.83 Other fatigue; R61 Generalized hyperhidrosis; I10 Essential (primary) hypertension; E11.9 Type 2 diabetes mellitus without complications; I25.10 Atherosclerotic heart disease of native coronary artery without angina pectoris; G47.33 Obstructive sleep apnea (adult) (pediatric); I48.91 Unspecified atrial fibrillation; E78.5 Hyperlipidemia, unspecified; Z88.8 Allergy status to other drugs, medicaments and biological substances; Z91.048 Other nonmedicinal substance allergy status; Z79.82 Long term (current) use of aspirin; Z86.73 Personal history of transient ischemic attack (TIA), and cerebral infarction without residual deficits; Z79.01 Long term (current) use of anticoagulants; Z79.4 Long term (current) use of insulin; Z79.84 Long term (current) use of oral hypoglycemic drugs; Z79.899 Other long term (current) drug therapy
CPT/HCPCS: 70450; 80053; 81003; 85025; 93005; 93010; J1953; J7030

== ENCOUNTER 2023-08-07 16:36 | Emergency (ER) | payer OTHER ==
[~2023-08-07] VITALS: Ht 177.8 cm; Wt 88.9 kg
[2023-08-07 17:49] LABS: BASOPHILS ABSOLUTE AUTO 0.06 K/mm3 (0.00-0.23); BASOPHILS PERCENT AUTO 1 % (0-2); EOSINOPHILS ABSOLUTE AUTO 0.14 K/mm3 (0.00-0.68); EOSINOPHILS PERCENT AUTO 2 % (0-6); Hematocrit 38.4 % (37.0-53.0); Hemoglobin 12.9 g/dL (13.5-17.5); IMMATURE GRAN ABSOLUTE AUTO 0.03 K/mm3 (0.00-0.10); IMMATURE GRAN PERCENT AUTO 0 % (0-1); LYMPHOCYTES ABSOLUTE AUTO 1.41 K/mm3 (0.84-5.20); LYMPHOCYTES PERCENT AUTO 15 % (21-46); MONOCYTES ABSOLUTE AUTO 0.79 K/mm3 (0.16-1.47); MONOCYTES PERCENT AUTO 8 % (4-13); Mean Corpuscular HGB 27.9 pg (26.0-34.0); Mean Corpuscular HGB Conc 33.6 g/dL (31.5-36.5); Mean Corpuscular Volume 83 fL (80-100); Mean Platelet Volume 9.9 fL (9.1-12.4); NEUTROPHILS ABSOLUTE AUTO 7.03 K/mm3 (1.96-9.15); NEUTROPHILS PERCENT AUTO 74 % (41-73); Platelet Count 256 K/mm3 (150-400); RDW Coefficient Variation 14.9 % (11.7-14.2); RDW Standard Deviation 45.1 fL (35.1-46.3); Red Blood Cell Count 4.62 M/mm3 (4.30-5.90); White Blood Cell Count 9.46 K/mm3 (4.00-11.30)
[2023-08-07 18:06] LABS: Albumin, Blood 4.1 g/dL (3.4-5.0); Albumin/Globulin Ratio 1.1 (0.8-1.8); Bilirubin, Total 0.6 mg/dL (0.1-1.0); Bun/Creatinine Ratio 13.5 (12.0-20.0); Calcium, Blood 9.5 mg/dL (8.5-10.1); Creatinine, Blood 1.33 mg/dL (0.60-1.20); Globulin, Blood 3.9 g/dL (2.2-4.0); Magnesium, Blood 2.1 mg/dL (1.6-2.4)
[2023-08-07 19:10] LABS: Source, Urine Clean Catch
[2023-08-07 19:15] LABS: Appearance, Urine Clear (Clear); Bilirubin, Urine Neg (Neg); Blood, Urine Neg (Neg); Glucose Qualitative, Urine 4+ (Neg); Ketones, Urine 2+ (Neg); Leukocyte Esterase, Urine Neg (Neg); Nitrite, Urine Neg (Neg); Protein, Urine Neg (Neg); Urobilinogen, Urine NORM (Normal)
[2023-08-07 19:20] LABS: Color, Urine Pale Yellow (P-Yellow)
[2023-08-07 20:38] VITALS: BP 223/93
[2023-08-07] MEDS ORDERED: ONDA4ODT MM (20:41)
== END 2023-08-07 20:44 | disposition home or self-care (01) ==
LOC: ER 16:36
PROVIDERS: Emergency Medicine
DX: R56.9 Unspecified convulsions (principal); I10 Essential (primary) hypertension; I25.119 Atherosclerotic heart disease of native coronary artery with unspecified angina pectoris; E11.9 Type 2 diabetes mellitus without complications; I48.91 Unspecified atrial fibrillation; G47.33 Obstructive sleep apnea (adult) (pediatric); K21.9 Gastro-esophageal reflux disease without esophagitis; E78.5 Hyperlipidemia, unspecified; Z88.8 Allergy status to other drugs, medicaments and biological substances; Z91.048 Other nonmedicinal substance allergy status; Z79.899 Other long term (current) drug therapy; Z79.84 Long term (current) use of oral hypoglycemic drugs; Z79.4 Long term (current) use of insulin; Z79.01 Long term (current) use of anticoagulants; Z79.82 Long term (current) use of aspirin; Z95.1 Presence of aortocoronary bypass graft; Z95.5 Presence of coronary angioplasty implant and graft
CPT/HCPCS: 80053; 81003; 83735; 83880; 84484; 85025; 93005; 93010; 96361; 96365; 96375; 99284-25; A9270; J0780; J1953; J7030

== ENCOUNTER 2024-01-16 15:25 | Emergency (ER) | payer OTHER ==
[~2024-01-16] VITALS: Ht 177.8 cm; Wt 90.7 kg
[2024-01-16 17:19] VITALS: BP 151/72
== END 2024-01-16 17:16 | disposition home or self-care (01) ==
LOC: ER 15:25
DX: R56.9 Unspecified convulsions (principal); N17.9 Acute kidney failure, unspecified; N28.9 Disorder of kidney and ureter, unspecified; Z88.8 Allergy status to other drugs, medicaments and biological substances; Z79.899 Other long term (current) drug therapy; Z79.4 Long term (current) use of insulin; Z79.82 Long term (current) use of aspirin; I10 Essential (primary) hypertension; E11.9 Type 2 diabetes mellitus without complications; I48.91 Unspecified atrial fibrillation; G47.33 Obstructive sleep apnea (adult) (pediatric); K21.9 Gastro-esophageal reflux disease without esophagitis; E78.5 Hyperlipidemia, unspecified